=== PATIENT | male | born 1990 | race Caucasian/White ===

== ENCOUNTER 2016-11-22 21:04 | Emergency (ER) | payer SELFPAY ==
[2016-11-23] MEDS ORDERED: Ketorolac Tromethamine 60 MG/2 ML VIAL ONE (00:33)
--- NOTE | 2016-11-23 11:29 | RAD ---
RIGHT KNEE 2 VIEWS: Date: 11/22/16 HISTORY: Right knee pain. COMPARISON: 06/25/12. FINDINGS: Joint spaces are preserved. No acute fracture, dislocation, or significant fluid distention of the j oint capsule are apparent. Lobular calcifications project over the suprapatellar bursa (2.5 cm) and over the intercondylar fossa (2.5 cm). Smaller, well circumscribed oval calcifications project over the anterior aspect of the intercondylar fossa. These are similar in appearance to the 06/25/12 exam . IMPRESSION: Intracapsular loose bodies are similar in appearance to the previous study. No acute osseous abnorma lities are otherwise demonstrated. POS: [facility]
== END 2016-11-23 00:52 | disposition home or self-care (01) ==
LOC: BURERS 21:04
DX: M23.91 Unspecified internal derangement of right knee (principal); Z79.899 Other long term (current) drug therapy
CPT/HCPCS: 96372; J1885

== ENCOUNTER 2016-12-01 20:15 | Emergency (ER) | payer SELFPAY ==
[2016-12-01] MEDS ORDERED: Cephalexin 250 MG CAP ONE (20:36)
== END 2016-12-01 20:48 | disposition home or self-care (01) ==
LOC: BURERS 20:15
DX: J02.9 Acute pharyngitis, unspecified (principal)
CPT/HCPCS: 99283